=== PATIENT | male | born 1990 | race American Indian/Alaskan Native ===

== ENCOUNTER 2017-08-17 14:51 | Emergency (ER) | payer SELFPAY ==
[2017-08-17] MEDS ORDERED: TORADOL ONE (15:47)
[2017-08-17] MEDS ORDERED: NACL 0.9% 1000 ML 1,000 ML ONE (15:47)
[2017-08-17] MEDS ORDERED: NACL 0.9% 1000 ML 1,000 ML IV ONE (15:53)
[2017-08-17] MEDS ORDERED: TORADOL IV ONE (15:53)
[2017-08-17] MEDS ORDERED: BENADRYL IV ONE (20:48)
[2017-08-17] MEDS ORDERED: XYLOCAINE TOPICAL 4% TP ONE (20:48)
[2017-08-17] MEDS ORDERED: MAGNESIUM SULFATE 2GM/50ML 2 GM/50 ML BAG IV ONE (20:48)
[2017-08-17] MEDS ORDERED: REGLAN IV ONE (20:48)
--- NOTE | 2017-08-17 20:52 | Emergency Department Report ---
ED Headache HPI - General Chief Complaint: Headache Stated Complaint: MIGRAINE Time Seen by Provider: 08/17/17 20:41 Source: patient, family Exam Limitations: no limitations - History of Present Illness Initial Comments: This is a 26-year-old male who was previously unknown to this provider. He has a history of seizure disorder, chronic headaches, presumed migraines, asthma, history of appendectomy. He does not have a private neurologist or primary care doctor and he is not compliant with his Keppra medication. He presents to the ER with his typical left-sided retro-orbital headache which is throbbing and achy in nature. It started last night, it was not sudden or thunderclap in nature, was not maximal in intensity in the beginning, and it did not reach maximal intensity within an hour. It is worsened with exposure to loud sounds and bright lights. He reports no relief with [id number] medication. He reports this is similar to prior episodes of "migraines." There is no neck pain , chest pain, abdominal pain, stiffness, fevers, chills, lethargy, irritability. Timing/Duration: 24 hours Quality: moderate Head Injury Location: frontal Recent Head Trauma: frequent headaches, chronic headaches, occasional headaches Modifying Factors: improves with: other (symptoms worsened with exposure to light and loud sounds.) Associated Symptoms: denies: confusion, fatigue, facial pain, fever/chills, flushing, loss of consciousness, nasal congestion, nasal drainage, numbness in legs/feet, rash, seizures, sinus infection, stiff neck, vision changes, weakness Allergies/Adverse Reactions: Allergies shrimp Allergy (Verified 02/09/15 05:54) Hives Home Medications: Ambulatory Orders Doxycycline Monohydrate [Doxycycline Monohydrate CAP] 100 mg PO BID #14 capsule 02/09/15 Ibuprofen [Motrin] 600 mg PO Q8H PRN #30 tablet 08/17/17 Metoclopramide [Reglan] 10 mg PO QID PRN #30 tablet 08/17/17 levETIRAcetam [Keppra TAB] 500 mg PO BID #30 tablet 08/17/17 ED Review of Systems ROS: Stated complaint: MIGRAINE Other details as noted in HPI Comment: All other systems reviewed and negative ED Past Medical Hx - Past Medical History Hx Headaches / Migraines: Yes Hx Seizures: Yes Hx Asthma: Yes - Surgical History Hx Appendectomy: Yes (ruptured) Additional Surgical History: Screws in left heel - Social History Smoking Status: Current Every Day Smoker - Medications Home Medications: Home Medications Medication Instructions Recorded Confirmed Last Taken Type Doxycycline Monohydrate 100 mg PO BID #14 capsule 02/09/15 Unknown Rx [Doxycycline Monohydrate CAP] Ibuprofen [Motrin] 600 mg PO Q8H PRN #30 tablet 08/17/17 Unknown Rx Metoclopramide [Reglan] 10 mg PO QID PRN #30 tablet 08/17/17 Unknown Rx levETIRAcetam [Keppra TAB] 500 mg PO BID #30 tablet 08/17/17 Unknown Rx ED Physical Exam - General Limitations: No Limitations General appearance: alert, in no apparent distress - Head Head exam: Present: atraumatic, normocephalic - Eye Eye exam: Present: normal appearance, PERRL, EOMI, other (visual acuity intact to finger counting, color perception, reading at a close distance). Absent: nystagmus - ENT ENT exam: Present: normal exam, normal orophraynx, mucous membranes moist, TM's normal bilaterally, normal external ear exam - Neck Neck exam: Present: normal inspection, full ROM. Absent: tenderness, meningismus - Respiratory Respiratory exam: Present: normal lung sounds bilaterally. Absent: respiratory distress - Cardiovascular Cardiovascular Exam: Present: regular rate, normal rhythm, normal heart sounds. Absent: systolic murmur, diastolic murmur, rubs, gallop - GI/Abdominal GI/Abdominal exam: Present: soft, normal bowel sounds. Absent: distended, tenderness, guarding, rebound, rigid, pulsatile mass - Rectal Rectal exam: Present: deferred - Extremities Exam Extremities exam: Present: normal inspection, full ROM, normal capillary refill. Absent: pedal edema, joint swelling, calf tenderness - Back Exam Back exam: Present: normal inspection, full ROM. Absent: tenderness, CVA tenderness (R), paraspinal tenderness, vertebral tenderness - Neurological Exam Neurological exam: Present: alert, oriented X3, CN II-XII intact, normal gait, other (Extraocular movements intact. Tongue midline. No facial droop. Facial sensation intact to light touch in the V1, V2, V3 distribution bilaterally. 5 and 5 strength in 4 extremities.. Sensation is intact to light touch in 4 extremities.). Absent: motor sensory deficit - Psychiatric Psychiatric exam: Present: normal affect, normal mood - Skin Skin exam: Present: warm, dry, intact, normal color. Absent: rash ED Course Vital Signs 08/17/17 08/17/17 15:42 15:54 Pulse Rate 97 H Respiratory 18 18 Rate Blood Pressure 153/112 O2 Sat by Pulse 97 Oximetry ED Medical Decision Making - Lab Data Vital Signs 08/17/17 08/17/17 15:42 15:54 Pulse Rate 97 H Respiratory 18 18 Rate Blood Pressure 153/112 O2 Sat by Pulse 97 Oximetry - Medical Decision Making Differential diagnosis, including but not limited to: Migraine headache, tension headache, cluster headache, headache etiology not otherwise specified Assessment and plan: 26-year-old male with typical left-sided retro-orbital headache. Headache by history is not consistent with ischemic or hemorrhagic stroke or meningitis. Clinically sober at this time, no meningeal signs, NIH score of 0. Medicated with a typical migraine cocktail and sphenopalatine ganglion block; patient reports complete resolution of symptoms. His repeat neurologic examination is unremarkable, he will be restarted on Keppra, and instructed to follow-up with an outpatient neurology specialist. Critical care attestation.: If time is entered above; I have spent that time in minutes in the direct care of this critically ill patient, excluding procedure time. ED Disposition Clinical Impression: Headache Disposition: [id number] TO HOME OR SELFCARE Is pt being admited?: No Does the pt Need Aspirin: No Condition: Good Instructions: Acute Headache (ED) Additional Instructions: Take medications as needed/directed. Follow up with her primary care doctor or neurology specialist within the next month. If the patient has a seizure, do not drive or operate motor vehicles for the next 6 months. Return to the ER right away with new pain, worsened pain, migration of pain, fevers, chills, lethargy, irritability, projectile vomiting, change in mental status, confusion, inability to tolerate liquid feeds. Referrals: MARCY LAZAR MD [Primary Care Provider] - 3-5 Days ANITRA LLANOS MD [Referring] - 3-5 Days LAURA SMITH MD [Staff Physician] - 3-5 Days ANNETTE GLORIA MD [Staff Physician] - 3-5 Days
[2017-08-17 22:05] VITALS: BP 132/78
== END 2017-08-17 22:18 | disposition home or self-care (01) ==
LOC: ED 14:51
DX: G43.909 Migraine, unspecified, not intractable, without status migrainosus (principal); G40.909 Epilepsy, unspecified, not intractable, without status epilepticus; J45.909 Unspecified asthma, uncomplicated; F17.200 Nicotine dependence, unspecified, uncomplicated; G89.29 Other chronic pain; Z91.013 Allergy to seafood
CPT/HCPCS: 96361; 96365; 96375; 99283; J1200; J1885; J2765; J2930; J3475; J7030